=== PATIENT | male | born 1970 | race Caucasian/White ===

== ENCOUNTER 2021-10-01 05:32 | Outpatient (CLI) | payer BC ==
[~2021-10-01] VITALS: Ht 177.8 cm; Wt 109.4 kg
[2021-10-02] MEDS ORDERED: PLAN450T2 PO (14:02)
[2021-10-02] MEDS ORDERED: [UNRECOGNIZED DRUG - CODE] PO (14:02)
== END 2021-10-02 15:10 | disposition home or self-care (01) ==
LOC: PREOP 05:32
PROVIDERS: ATTEND Surgery
DX: Z01.818 Encounter for other preprocedural examination (principal)

== ENCOUNTER 2021-10-09 07:15 | Day surgery (SDC) | payer BC ==
[~2021-10-09] VITALS: Ht 177.8 cm; Wt 109.4 kg
[~2021-10-09 07:15] MED LIST: PLAN450T2 PO; [UNRECOGNIZED DRUG - CODE] PO
[2021-10-09] MEDS ORDERED: LACTATED RINGERS 1,000 ML IV STA (07:20)
[2021-10-09] MEDS ORDERED: LACTATED RINGERS 1,000 ML IV ONE (07:31)
[2021-10-09] MEDS ORDERED: PROPOFOL INJECTION 50 ML IV ONE (07:39)
[2021-10-09 07:45] VITALS: BP 115/78
[2021-10-09 08:30] VITALS: BP 100/70
--- NOTE | 2021-10-09 08:30 | Progress Note-Post Operative ---
Post-Operative Progess Note Surgeon (s)/Calender Roll Press Operator (s) Surgeon CHRISTINA DE LA CRUZ DO Calender Roll Press Operator: na Pre-Operative Diagnosis screening colonoscopy Post-Operative Diagnosis colon polyps, diverticulosis Procedure & Operative Findings Date of Procedure 10/09/21 Procedure Performed/Findings colonoscopy c hot bx polypectomy x 2 snare polypectomy x 1 Anesthesia Type per software quality tester Estimated Blood Loss Estimated blood loss (mL): none Specimens/Packing Specimens Removed colon polyps CHRISTINA DE LA CRUZ DO Oct 09, 2021 08:30
--- NOTE | 2021-10-09 08:30 | Anesthesia-General Post-Op ---
MAC Patient Condition Mental Status/LOC: Same as Preop Cardiovascular: Satisfactory Nausea/Vomiting: Absent Respiratory: Satisfactory Pain: Controlled Complications: Absent Post Op Complications Complications None Follow Up Care/Instructions Patient Instructions None needed. Anesthesiology Discharge Order Discharge Order Patient is doing well, no complaints, stable vital signs, no apparent adverse anesthesia problems. No complications reported per nursing. CATHI BRANCH CRNA Oct 09, 2021 08:30
--- NOTE | 2021-10-09 08:32 | Discharge Inst-Simple/Standard ---
Discharge Inst-Standard Patient Instructions/Follow Up Plan of Care/Instructions/FU: 2 weeks Katja Activity as Tolerated: Yes Discharge Diet: Regular Diet (high fiber) CHRISTINA DE LA CRUZ DO Oct 09, 2021 08:31
[2021-10-09 08:34] VITALS: BP 97/65
[2021-10-09 08:35] VITALS: BP 97/65
--- NOTE | 2021-10-09 12:09 | OPERATIVE REPORT ---
DATE OF SERVICE: 10/09/2021 PREOPERATIVE DIAGNOSIS: Screening colonoscopy. POSTOPERATIVE DIAGNOSIS: Colon polyps, diverticulosis. PROCEDURES PERFORMED: Colonoscopy with hot biopsy polypectomy x2 and snare polypectomy x1. SURGEON: Christina Hightower DO. ANESTHESIA: Per PULMONOLOGIST/INTENSIVIST. ESTIMATED BLOOD LOSS: None. COMPLICATIONS: None. INDICATIONS FOR PROCEDURE: The patient is a 51-year-old male with need for screening colonoscopy. He understands the risks and benefits of the procedure and wishes to proceed. Consent was signed in the chart. DESCRIPTION OF PROCEDURE: The patient was taken to the endoscopy suite and placed in a left lateral recumbent position. A timeout was performed. Digital rectal exam was performed. No palpable polyps, masses or ulcerations. Scope was inserted in the rectum and advanced all the way to cecum with minimal difficulty. Prep was adequate. Scope was slowly retracted back. No polyps, masses or ulcerations within the cecum. In the ascending colon, small polyp was present, which hot biopsy polypectomy was performed. Scope was then continuously and slowly retracted back. No polyps, masses or ulcerations in the remainder of the ascending colon. In the transverse colon, another polyp was present, which hot biopsy polypectomy was performed. Scope was then continuously and slowly retracted back. No polyps, masses or ulcerations in the remainder of the transverse, descending colon. In the sigmoid colon, a larger polyp was present, which snare polypectomy was performed. This was obtained for specimen. Scope was then continuously and slowly retracted back, also noting diverticulosis. Once in the rectum, scope was retroflexed noting some internal hemorrhoids. No other pathology. Scope was returned to its normal position, slowly withdrawn until completely removed. The patient tolerated the procedure well without any complications and taken to the recovery room in stable condition. RECOMMENDATIONS: due to larger polyp, we would recommend repeat colonoscopy in one year. Any issues before that be seen at that time. The patient will follow up in the office in two weeks to discuss pathology results. Job ID: [id number] DocumentID: [id number] Dictated Date: 10/09/2021 08:33:57 Purchasing Agent Date: 10/09/2021 12:08:30 Dictated By: CHRISTINA HIGHTOWER DO
== END 2021-10-09 08:35 | disposition home or self-care (01) ==
LOC: ENDO 07:15
PROVIDERS: ATTEND Surgery
DX: D12.5 Benign neoplasm of sigmoid colon (principal); Z12.11 Encounter for screening for malignant neoplasm of colon; K63.5 Polyp of colon; K57.30 Diverticulosis of large intestine without perforation or abscess without bleeding
CPT/HCPCS: 88305

== ENCOUNTER 2022-11-20 05:35 | Outpatient (CLI) | payer BC ==
[~2022-11-20] VITALS: Ht 177.8 cm; Wt 110.7 kg
== END 2022-11-22 12:01 | disposition home or self-care (01) ==
LOC: PREOP 05:35
PROVIDERS: ATTEND Surgery
DX: Z01.818 Encounter for other preprocedural examination (principal)

== ENCOUNTER 2022-12-03 07:25 | Day surgery (SDC) | payer BC ==
[~2022-12-03] VITALS: Ht 178 cm; Wt 110.7 kg
[2022-12-03] MEDS ORDERED: LACTATED RINGERS 1,000 ML IV STA (07:35)
[2022-12-03 07:55] VITALS: BP 123/78
[2022-12-03] MEDS ORDERED: PROPOFOL INJECTION 50 ML IV ONE (08:10)
--- NOTE | 2022-12-03 08:33 | Progress Note-Post Operative ---
Post-Operative Progess Note Surgeon (s)/Admitting Office Escort (s) Surgeon CHRISTINA DE LA CRUZ DO Admitting Office Escort: na Pre-Operative Diagnosis hx of polyps Post-Operative Diagnosis colon polyp Procedure & Operative Findings Date of Procedure 12/03/22 Procedure Performed/Findings colonoscopy with hot biopsy polypectomy x1 Anesthesia Type per LOAD DISPATCHER Estimated Blood Loss Estimated blood loss (mL): none Specimens/Packing Specimens Removed ascending colon CHRISTINA DE LA CRUZ DO December 03, 2022 08:33
--- NOTE | 2022-12-03 08:35 | Discharge Inst-Simple/Standard ---
Discharge Inst-Standard Patient Instructions/Follow Up Plan of Care/Instructions/FU: two week manny Activity as Tolerated: Yes Discharge Diet: Regular Diet CHRISTINA DE LA CRUZ DO December 03, 2022 08:35
[2022-12-03 08:38] VITALS: BP 95/50
[2022-12-03 08:43] VITALS: BP 94/51
[2022-12-03 08:45] VITALS: BP 101/58
[2022-12-03 09:15] VITALS: BP 101/58
--- NOTE | 2022-12-03 12:01 | Anesthesia-General Post-Op ---
MAC Patient Condition Mental Status/LOC: Same as Preop Cardiovascular: Satisfactory Nausea/Vomiting: Absent Respiratory: Satisfactory Pain: Controlled Complications: Absent Post Op Complications Complications None Follow Up Care/Instructions Patient Instructions None needed. Anesthesiology Discharge Order Discharge Order Patient is doing well, no complaints, stable vital signs, no apparent adverse anesthesia problems. No complications reported per nursing. PHAM BURGOS CRNA December 03, 2022 12:01
--- NOTE | 2022-12-03 15:44 | OPERATIVE REPORT ---
DATE OF SERVICE: 12/03/2022 PREOPERATIVE DIAGNOSIS: History of polyps. POSTOPERATIVE DIAGNOSIS: Colon polyp. PROCEDURE: Colonoscopy with hot biopsy polypectomy x1. SURGEON: Christina Hightower D.O. ANESTHESIA: Per GEM TECHNICIAN. ESTIMATED BLOOD LOSS: None. COMPLICATIONS: None. INDICATIONS: The patient is a 52-year-old male with history of polyps. He understands risks and benefits of procedure and wished to proceed. Consent was signed in chart. DESCRIPTION OF PROCEDURE: The patient was taken to endoscopy suite, placed in left lateral recumbent position. Timeout was performed. Digital rectal exam was performed. No palpable polyps, masses or ulcerations. Scope was inserted in the rectum, advanced all the way to the cecum with minimal difficulty. Prep was adequate. Scope was slowly retracted back. No polyps, masses or ulcerations in the cecum. In the ascending colon, a small polyp was present on which hot biopsy polypectomy was performed. Scope was then continuously retracted back. No polyps, masses or ulcerations in the remainder of the ascending, transverse, descending and sigmoid colon. Once in the rectum, scope was retroflexed noting no other pathology. Scope was returned to its normal position, slowly withdrawn until completely removed. The patient tolerated the procedure well with no complications, taken to recovery room in stable condition. RECOMMENDATIONS: The patient will need repeat colonoscopy in 5 years. Any issues before that, be seen at that time. He will follow up on pathology in 2 weeks. Job ID: [id number] DocumentID: [id number] Dictated Date: 12/03/2022 08:34:08 Electrical Assembler Date: 12/03/2022 15:42:00 Dictated By: CHRISTINA HIGHTOWER DO
== END 2022-12-03 09:17 | disposition home or self-care (01) ==
LOC: ENDO 07:25
PROVIDERS: ATTEND Surgery
DX: Z12.11 Encounter for screening for malignant neoplasm of colon (principal); D12.2 Benign neoplasm of ascending colon; Z87.891 Personal history of nicotine dependence
CPT/HCPCS: 88305

== ENCOUNTER 2022-12-13 14:51 | Outpatient (CLI) | payer BC | END 2022-12-13 15:35 | LOC: SLEEP 14:51 | PROVIDERS: ATTEND Nurse Practitioner Family | DX: R06.83 Snoring (principal) | CPT/HCPCS: G0399 ==